=== PATIENT | male | born 1965 | race African-American/Black ===

== ENCOUNTER 2019-08-07 11:35 | Inpatient (IN) | payer OTHER ==
[2019-08-07 17:12] VITALS: BMI 21.5
--- NOTE | 2019-08-07 18:27 | HP ---
CIWA Score Nausea/Vomitin Muscle Tremors: 3 Anxiety: 3 Agitation: 0-Normal Activity Paroxysmal Sweats: 2 Orientation: 0-Oriented Tacttile Disturbances: 1-Very Mild Itch/Numbness Auditory Disturbances: 0-None Visual Disturbances: 1-Very Mild Sensitivity Headache: 3-Moderate CIWA-Ar Total Score: 15 - Admission Criteria OASAS Guidelines: Admission for Medically Managed Detox: Requires at least one of the followin. CIWA greater than 12 2. Seizures within the past 24 hours 3. Delirium tremens within the past 24 hours 4. Hallucinations within the past 24 hours 5. Acute intervention needed for co occurring medical disorder 6. Acute intervention needed for co occurring psychiatric disorder 7. Severe withdrawal that cannot be handled at a lower level of care (continued vomiting, continued diarrhea, abnormal vital signs) requiring intravenous medication and/or fluids 8. Patient presents the following: CIWA greater than 12 Admission Criteria Met: Admission criteria met Admission ROS S - HPI Chief Complaint: alcohol withdrawal sx Allergies/Adverse Reactions: Allergies Allergy/AdvReac Type Severity Reaction Status Date / Time No Known Allergies Allergy Verified 08/07/19 17:06 History of Present Illness: Patient is a 53 yo male domiciled with hx of alcohol dependence is here seeking detox d/t alcohol withdrawal symptoms. Reports last detox [facility] in 2016 reports one year sobriety and relapse soon after. Reports frequent hx of alcohol syncope with last episode two days ago. Denies hx of withdrawal seizures. Denies SI/HI. Denies psych hx. - Ebola screening Have you traveled outside of the country in the last 21 days: No Have you had contact with anyone from an Ebola affected area: No - Review of Systems Constitutional: Chills, Loss of Appetite, Changes in sleep, Unintentional Wgt. Loss (weight loss 25 lbs) EENT: reports: No Symptoms Reported Respiratory: reports: No Symptoms reported Cardiac: reports: No Symptoms Reported GI: reports: Diarrhea, Nausea, Poor Appetite, Poor Fluid Intake : reports: No Symptoms Reported Musculoskeletal: reports: No Symptoms Reported Integumentary: reports: Pruritus Neuro: reports: Headache, Tremors Endocrine: reports: No Symptoms Reported Hematology: reports: No Symptoms Reported Psychiatric: reports: Orientated x3, Anxious Other Systems: Reviewed and Negative Patient History - Patient Medical History Hx Anemia: No Hx Asthma: No Hx Chronic Obstructive Pulmonary Disease (COPD): No Hx Cancer: No Hx Cardiac Disorders: No Hx Congestive Heart Failure: No Hx Hypertension: No Hx Hypercholesterolemia: No Hx Pacemaker: No HX Cerebrovascular Accident: No Hx Seizures: No Hx Dementia: No Hx Diabetes: No Hx Gastrointestinal Disorders: No Hx Liver Disease: No Hx Genitourinary Disorders: No Hx Sexually Transmitted Disorders: No Hx Renal Disease (ESRD): No Hx Thyroid Disease: No Hx Human Immunodeficiency Virus (HIV): Yes (reports currently not meds ) Hx Hepatitis C: No Hx Depression: No Hx Suicide Attempt: No Hx Bipolar Disorder: No Hx Schizophrenia: No - Patient Surgical History Past Surgical History: No Hx Neurologic Surgery: No Hx Cataract Extraction: No Hx Cardiac Surgery: No Hx Lung Surgery: No Hx Breast Surgery: No Hx Breast Biopsy: No Hx Abdominal Surgery: No Hx Appendectomy: No Hx Cholecystectomy: No Hx Genitourinary Surgery: No Hx Section: No Hx Orthopedic Surgery: No Anesthesia Reaction: No - PPD History Previous Implant?: No Date: 02/09/16 Results: 0 mm - Smoking Cessation Smoking history: Current every day smoker Have you smoked in the past 12 months: Yes Aproximately how many cigarettes per day: 5 Cigars Per Day: 0 Hx Chewing Tobacco Use: No Initiated information on smoking cessation: Yes 'Breaking Loose' booklet given: 08/07/19 - Substance & Tx. History Hx Alcohol Use: Yes Hx Substance Use: Yes Substance Use Type: Alcohol, Cocaine Hx Substance Use Treatment: Yes (detox [facility] in 2016 ) - Substances abused Alcohol Substance route: Oral Frequency: Daily Amount used: 1/5th of vodka Age of first use: 21 Date of last use: 08/06/19 Crack Substance route: Smoking Frequency: 3-6 times per week Amount used: $50/day Age of first use: 26 Date of last use: 08/06/19 Admission Physical Exam BHS - Vital Signs Vital Signs: Vital Signs - 24 hr 08/07/19 17:08 Temperature 97.4 F L Pulse Rate 62 Respiratory 16 Rate Blood Pressure 146/86 - Physical General Appearance: Yes: Appropriately Dressed, Thin, Tremorous, Anxious HEENTM: Yes: EOMI, Hearing grossly Normal, Normal ENT Inspection, Normocephalic , Normal Voice, Pharynx Normal, Tm's normal Respiratory: Yes: Chest Non-Tender, Lungs Clear, Normal Breath Sounds, No Respiratory Distress, No Accessory Muscle Use Neck: Yes: Within Normal Limits Breast: Yes: Breast Exam Deferred Cardiology: Yes: Regular Rhythm, Regular Rate Abdominal: Yes: Normal Bowel Sounds, Non Tender, Flat, Soft Genitourinary: Yes: Within Normal Limits Back: Yes: Normal Inspection Musculoskeletal: Yes: full range of Motion, Gait Steady, Pelvis Stable Extremities: Yes: Normal Capillary Refill, Normal Inspection, Normal Range of Motion, Delayed Capillary Refill Neurological: Yes: handyman II-XII NML intact, Fully Oriented, Alert, Motor Strength 5/5, Normal Response, Depressed Affect Integumentary: Yes: Normal Color, Dry, Warm Lymphatic: Yes: Within Normal Limits - Diagnostic (1) Alcohol dependence with uncomplicated withdrawal Current Visit: Yes Status: Acute (2) Cocaine dependence Current Visit: Yes Status: Acute Qualifiers: Substance use status: uncomplicated Qualified Code(s): F14.20 - Cocaine dependence, uncomplicated (3) Weight decrease Current Visit: Yes Status: Acute (4) HIV (human immunodeficiency virus infection) Current Visit: Yes Status: Chronic Comment: Patient reports currently not on treatment. Patient to follow up with primary care provider upon discharge. (5) Nicotine dependence Current Visit: Yes Status: Chronic Qualifiers: Nicotine product type: cigarettes Substance use status: uncomplicated Qualified Code(s): F17.210 - Nicotine dependence, cigarettes, uncomplicated Cleared for Admission S - Detox or Rehab [facility] Level of Care: Medically Managed Detox Regimen/Protocol: Valium Breathalyzer - Breathalyzer Breathalyzer: 0 Urine Drug Screen - Test Device Lot number: [id number] Expiration date: 04/10/21 - Control Is test valid?: Yes - Results Drug screen NEGATIVE: No Urine drug screen results: ANETA-Cocaine, BZO-Benzodiazepines Inpatient Rehab Admission - Rehab Decision to Admit Inpatient rehab admission?: No
[2019-08-07] MEDS ORDERED: MELATONIN 5 MG TABLETS PO PRN (18:28)
[2019-08-07] MEDS ORDERED: MAGNESIUM HYDROX 2400MG/30ML ORAL SUSPENSION 30 ML CUP PO PRN (18:28)
[2019-08-07] MEDS ORDERED: NICOTINE POLACRILEX 2 MG GUM BUC PRN (18:28)
[2019-08-07] MEDS ORDERED: MENTHOL/PHENOL 1 EACH UD MM PRN (18:28)
[2019-08-07] MEDS ORDERED: hydrOXYzine PAMOATE 25 MG CAPSULE (FP) PO PRN (18:28)
[2019-08-07] MEDS ORDERED: IBUPROFEN 400 MG TABLET (FP) PO PRN (18:28)
[2019-08-07] MEDS ORDERED: ACETAMINOPHEN 325 MG TABLET (FP) PO PRN ×2 (18:28)
[2019-08-07] MEDS ORDERED: MAG HYDROX/AL HYDROX/SIMETH 30 ML UNIT-DOSE CUP PO PRN (18:28)
[2019-08-07] MEDS ORDERED: diazePAM 5 MG TABLET PO PRN (18:28)
[2019-08-07] MEDS ORDERED: BISMUTH SUBSALICYLATE 524 MG/30 ML UD PO PRN (18:28)
[2019-08-07] MEDS ORDERED: MAGNESIUM CITRATE 300 ML BOTTLE PO PRN (18:28)
[2019-08-07] MEDS ORDERED: METHOCARBAMOL 500 MG TABLET PO PRN (18:28)
[2019-08-07] MEDS: THIAMINE HCL 100 MG TABLET (FP) PO SCH (23:05)
[2019-08-07] MEDS: diazePAM 5 MG TABLET PO SCH (23:22)
[2019-08-08] MEDS: diazePAM 5 MG TABLET PO SCH ×3 (05:40→21:57)
[2019-08-08 10:20] LABS: ALBUMIN 3.5 g/dl (3.4-5.0); BILIRUBIN,TOTAL 0.3 mg/dL (0.2-1); BLOOD UREA NITROGEN 15.9 mg/dL (7-18); CALCIUM 8.2 mg/dL (8.5-10.1); CREATININE 0.9 mg/dL (0.55-1.3); TOT PROT 6.2 g/dl (6.4-8.2)
[2019-08-08 10:29] LABS: HEMATOCRIT 37.1 % (35.4-49); HEMOGLOBIN 12.5 GM/dL (11.7-16.9); MCHC 33.6 g/dl (32.0-35.9); MEAN CELL VOLUME 92.2 fl (80-96); MEAN PLT VOLUME 9.3 fl (7.5-11.1); PLATELET COUNT 179 K/MM3 (134-434); RBC 4.03 M/mm3 (4.00-5.60); RDW 14.2 % (11.9-15.9); WHITE BLOOD COUNT 3.4 K/mm3 (4.0-10.0)
[2019-08-08] MEDS: PRENATAL VITAMINS W/ FOLIC ACID TABLET (FP) PO SCH (10:51)
[2019-08-08] MEDS: NICOTINE 14 MG/24 HOURS TOPICAL PATCH TD SCH (10:51)
--- NOTE | 2019-08-08 12:10 | PN ---
S CIWA - CIWA Score Nausea/Vomitin-No Nausea/No Vomiting Muscle Tremors: 2 Anxiety: 3 Agitation: 1-Slight > Activity Paroxysmal Sweats: 3 Orientation: 0-Oriented Tacttile Disturbances: 1-Very Mild Itch/Numbness Auditory Disturbances: 0-None Visual Disturbances: 0-None Headache: 1-Very Mild CIWA-Ar Total Score: 11 S Progress Note (SOAP) Subjective: c/o interrupted sleep, anxiety, sweats, and headache. Objective: 08/08/19 12:09 Vital Signs 08/08/19 08/08/19 07:24 09:52 Temperature 97.5 F L 97.7 F Pulse Rate 49 L 52 L Respiratory 18 16 Rate Blood Pressure 140/86 119/67 Lab Results WBC 3.4 K/mm3 (4.0-10.0) L 08/08/19 07:40 RBC 4.03 M/mm3 (4.00-5.60) 08/08/19 07:40 Hgb 12.5 GM/dL (11.7-16.9) 08/08/19 07:40 Hct 37.1 % (35.4-49) 08/08/19 07:40 MCV 92.2 fl (80-96) 08/08/19 07:40 MCHC 33.6 g/dl (32.0-35.9) 08/08/19 07:40 RDW 14.2 % (11.9-15.9) 08/08/19 07:40 Plt Count 179 K/MM3 (134-434) 08/08/19 07:40 Sodium 142 mmol/L (136-145) 08/08/19 07:40 Potassium 4.0 mmol/L (3.5-5.1) 08/08/19 07:40 Chloride 109 mmol/L (98-107) H 08/08/19 07:40 Carbon Dioxide 26 mmol/L (21-32) 08/08/19 07:40 Anion Gap 7 MMOL/L (8-16) L 08/08/19 07:40 BUN 15.9 mg/dL (7-18) 08/08/19 07:40 Creatinine 0.9 mg/dL (0.55-1.3) 08/08/19 07:40 Random Glucose 94 mg/dL (74-106) 08/08/19 07:40 Calcium 8.2 mg/dL (8.5-10.1) L 08/08/19 07:40 Labs noted. Assessment: 08/08/19 12:09 AOX3, in no acute respiratory distress. Full ROM, ambulating in the unit. Withdrawal symptoms. Plan: continue detox.
[2019-08-08] MEDS: THIAMINE HCL 100 MG TABLET (FP) PO SCH (21:57)
[2019-08-09] MEDS: diazePAM 5 MG TABLET PO SCH ×2 (05:26→17:16)
[2019-08-09] MEDS: PRENATAL VITAMINS W/ FOLIC ACID TABLET (FP) PO SCH (11:00)
[2019-08-09] MEDS: NICOTINE 14 MG/24 HOURS TOPICAL PATCH TD SCH (11:00)
--- NOTE | 2019-08-09 17:27 | PN ---
[facility] CIWA - CIWA Score Nausea/Vomitin-Mild Nausea/No Vomiting Muscle Tremors: 3 Anxiety: 2 Agitation: 2 Paroxysmal Sweats: 3 Orientation: 0-Oriented Tacttile Disturbances: 0-None Auditory Disturbances: 0-None Visual Disturbances: 0-None Headache: 0-None Present CIWA-Ar Total Score: 11 S Progress Note (SOAP) Subjective: Diarrhea, interrupted sleep Objective: 08/09/19 17:23 Last Vital Signs Temp Pulse Resp BP Pulse Ox 97.0 F L 73 18 132/81 08/09/19 17:11 08/09/19 17:11 08/09/19 17:11 08/09/19 17:11 Laboratory Tests 08/08/19 08/08/19 08/08/19 07:40 07:40 07:40 WBC 3.4 L RBC 4.03 Hgb 12.5 Hct 37.1 MCV 92.2 MCH 31.0 MCHC 33.6 RDW 14.2 Plt Count 179 MPV 9.3 Sodium 142 Potassium 4.0 Chloride 109 H Carbon Dioxide 26 Anion Gap 7 L BUN 15.9 Creatinine 0.9 Est GFR (CKD-EPI)AfAm 113.41 Est GFR (CKD-EPI)NonAf 97.85 Random Glucose 94 Calcium 8.2 L Total Bilirubin 0.3 AST 28 ALT 34 Alkaline Phosphatase 75 Total Protein 6.2 L Albumin 3.5 RPR Titer Nonreactive Labs reviewed: Calcium 8.2 Assessment: 08/09/19 17:24 Withdrawal sxs Noted with hypocalcemia Plan: Continue detox Encouraged PO water intake Patient for discharge tomorrow, consider holding if patient still experiencing diarrhea Hypocalcemia: start calcium carbonate 650mg PO bid
[2019-08-09] MEDS ORDERED: CALCIUM CARBONATE 650 MG TABLET PO SCH (22:00)
[2019-08-09] MEDS: THIAMINE HCL 100 MG TABLET (FP) PO SCH (22:32)
[2019-08-10] MEDS ORDERED: diazePAM 5 MG TABLET PO ONE (06:00)
[2019-08-10 08:13] VITALS: BP 133/78; PULSE 49; TEMP 97.2
--- NOTE | 2019-08-10 08:35 | DS ---
[facility] Detox Discharge Summary Admission Date: 08/07/19 Discharge Date: 08/10/19 - History Present History: Alcohol Dependence, Cocaine Dependence - Physical Exam Results Vital Signs: Vital Signs Temperature 97.2 F L 08/10/19 08:13 Pulse Rate 49 L 08/10/19 08:13 Respiratory Rate 16 08/10/19 08:13 Blood Pressure 133/78 08/10/19 08:13 O2 Sat by Pulse Oximetry (%) Pertinent Admission Physical Exam Findings: pt arrived in withdrawals Laboratory Tests 08/08/19 08/08/19 08/08/19 07:40 07:40 07:40 WBC 3.4 L RBC 4.03 Hgb 12.5 Hct 37.1 MCV 92.2 MCH 31.0 MCHC 33.6 RDW 14.2 Plt Count 179 MPV 9.3 Sodium 142 Potassium 4.0 Chloride 109 H Carbon Dioxide 26 Anion Gap 7 L BUN 15.9 Creatinine 0.9 Est GFR (CKD-EPI)AfAm 113.41 Est GFR (CKD-EPI)NonAf 97.85 Random Glucose 94 Calcium 8.2 L Total Bilirubin 0.3 AST 28 ALT 34 Alkaline Phosphatase 75 Total Protein 6.2 L Albumin 3.5 RPR Titer Nonreactive pt today feeling better aaox3 ambulating no acute distress no s/s of withdrawals no c/o of diarrhea - Treatment Hospital Course: Detox Protocol Followed, Detoxed Safely, Responded well, Discharged Condition Good, Rehab Referral Accepted Patient has Accepted a Rehab Referral to: referral provided - Medication Discharge Medications: Ambulatory Orders NK [No Known Home Medication] 08/07/19 - Diagnosis (1) Alcohol dependence with uncomplicated withdrawal Current Visit: Yes Status: Chronic (2) Cocaine dependence Current Visit: Yes Status: Chronic Qualifiers: Substance use status: uncomplicated Qualified Code(s): F14.20 - Cocaine dependence, uncomplicated (3) Weight decrease Current Visit: Yes Status: Acute (4) HIV (human immunodeficiency virus infection) Current Visit: Yes Status: Chronic Qualifiers: HIV symptom status: unspecified Qualified Code(s): B20 - Human immunodeficiency virus [HIV] disease (5) Nicotine dependence Current Visit: Yes Status: Chronic Qualifiers: Nicotine product type: cigarettes Substance use status: uncomplicated Qualified Code(s): F17.210 - Nicotine dependence, cigarettes, uncomplicated (6) Alcohol-induced sleep disorder Current Visit: No Status: Acute (7) Insomnia Current Visit: No Status: Acute (8) Syncope Current Visit: No Status: Acute (9) Peripheral neuropathy Current Visit: No Status: Chronic - AMA Did Patient Leave Against Medical Advice: No
--- NOTE | 2019-08-10 13:27 | EKG ---
Test Reason : Blood Pressure : / mmHG Vent. Rate : 047 BPM Atrial Rate : 047 BPM P-R Int : 154 ms QRS Dur : 084 ms QT Int : 448 ms P-R-T Axes : -02 065 063 degrees QTc Int : 396 ms SINUS BRADYCARDIA VOLTAGE CRITERIA FOR LEFT VENTRICULAR HYPERTROPHY ABNORMAL ECG NO PREVIOUS ECGS AVAILABLE Confirmed by MARISSA VAUGHN MD ([id number]) on 08/10/2019 1:27:18 PM Referred By: Confirmed By:MARISSA VAUGHN MD
== END 2019-08-10 09:14 | disposition home or self-care (01) | DRG 774 ==
LOC: YASAS 11:35 → Y6N 18:40
PROVIDERS: ADMIT Surgery; ATTEND Surgery
PROC: HZ2ZZZZ Detoxification Services for Substance Abuse Treatment (ICD-10-PCS; principal; 2019-08-07)
DX: F10.230 Alcohol dependence with withdrawal, uncomplicated (principal); F10.282 Alcohol dependence with alcohol-induced sleep disorder; F14.20 Cocaine dependence, uncomplicated; F17.210 Nicotine dependence, cigarettes, uncomplicated; Z21 Asymptomatic human immunodeficiency virus [HIV] infection status; R63.4 Abnormal weight loss; G47.00 Insomnia, unspecified; G62.9 Polyneuropathy, unspecified; E83.52 Hypercalcemia
CPT/HCPCS: 36415; 80053; 85027; 86593; 93005; 93010